=== PATIENT | male | born 1995 | race American Indian/Alaskan Native ===

== ENCOUNTER 2020-09-12 08:59 | Emergency (ER) | payer SELFPAY ==
[2020-09-12 09:09] VITALS: BP 145/80
--- NOTE | 2020-09-12 09:32 | Emergency Department Report ---
Chief Complaint: Back Pain/Injury Stated Complaint: BACK INJURY Time Seen by Provider: 09/12/20 09:24 - HPI History of Present Illness: The patient was evaluated in the emergency department for symptoms described in the history of present illness. He/she was evaluated in the context of the global COVID-19 pandemic, which necessitated consideration that the patient might be at risk for infection with the virus that causes COVID-19. Institutional protocols and algorithms that pertain to the evaluation of patients at risk for COVID-19 are in a state of rapid change based on information released by regulatory bodies including the CDC and federal and state organizations. These policies and algorithms were followed during the patient's care in the emergency department. Please note that these policies, procedures and recommendations changed on a rapid basis. 25-year-old -[place] male presents to the emergency room for back and neck spasms. Patient states that he was lifting a gait that had fallen on him a week and a half ago. Patient states that he will have spasms intermittently. He states he is try to go to [facility] as well as [facility] and they were booked up. Patient denies any fever chills no change of vision no headache no nausea no vomiting able to ambulate and able to functions of daily living. Patient is requesting muscle relaxants. Patient has not taken anything for pain. - Exam Vital Signs: Vital Signs 09/12/20 09:00 Temperature 98 F Pulse Rate 91 H Respiratory 16 Rate Blood Pressure 145/80 O2 Sat by Pulse 98 Oximetry Physical Exam: Alert and oriented x3 no acute distress nontoxic in appearance Neck full range of motion able to text on cell phone Respiratory no use of accessory muscles nonlabored breathing Back full range of motion. Ambulatory without difficulties MSE screening note: Focused history and physical exam performed. Due to findings the following was ordered: 25-year-old -[place] male presents to the emergency room for back and neck spasms. Patient states that he was lifting a gait that had fallen on him a week and a half ago. Patient states that he will have spasms intermittently. He states he is try to go to [facility] as well as [facility] and they were booked up. Patient denies any fever chills no change of vision no headache no nausea no vomiting able to ambulate and able to functions of daily living. Patient is requesting muscle relaxants. Patient has not taken anything for pain. Discussed with patient can try [id number] ibuprofen or Tylenol and to follow-up at her urgent care if symptoms persist or gets worse. ED Disposition for MSE Disposition: MED SCREENING EXAM-LEFT Is pt being admited?: No Does the pt Need Aspirin: No Condition: Stable Additional Instructions: Please follow-up at her urgent care or primary care provider. Referrals: [facility] [Other] - 3-5 Days
== END 2020-09-12 10:23 | disposition left against medical advice (07) ==
LOC: ED 08:59
DX: M54.89 Other dorsalgia (principal); Z53.21 Procedure and treatment not carried out due to patient leaving prior to being seen by health care provider